=== PATIENT | male | born 1950 | race Caucasian/White ===

== ENCOUNTER 2017-05-31 08:34 | Day surgery (SDC) | payer MEDICARE, OTHER ==
[2017-05-28 16:24] VITALS: Ht 172.7 cm; Wt 108.7 kg
[~2017-05-31] VITALS: Ht 172.7 cm; Wt 108.7 kg
[2017-05-31] VITALS (14 sets, daily range): BP systolic 71–149; BP diastolic 44–92; PULSE 56–77; RESP 11–23
[~2017-05-31 08:34] MED LIST: SUCCINYLCHOLINE CHLORIDE 100 MG/5 ML SYG IV ONE
[2017-05-31] MEDS ORDERED: CLINDAMYCIN 600 MG/D5W (PMX) 50 ML IVPB ONE (09:00)
[2017-05-31] MEDS ORDERED: SOD CHLORIDE 0.9% 1,000 ML IV ONE (09:00)
[2017-05-31] MEDS ORDERED: ASPI81TA3 PO (09:29)
[2017-05-31] MEDS ORDERED: AMLO-147 PO (09:29)
[2017-05-31] MEDS ORDERED: GABA300C16 PO (09:30)
[2017-05-31] MEDS ORDERED: CARV6.2579 PO (09:30)
[2017-05-31] MEDS ORDERED: ATOR10TA65 PO (09:30)
[2017-05-31] MEDS ORDERED: DICL50TA11 PO (09:31)
[2017-05-31] MEDS ORDERED: LOSA100T7 PO (09:31)
[2017-05-31] MEDS ORDERED: OMEG1CAP2 PO (09:31)
[2017-05-31] MEDS ORDERED: ICOS1CAP PO (09:32)
[2017-05-31] MEDS ORDERED: ACET-141 PO (09:33)
[2017-05-31] MEDS ORDERED: ALLO100T PO (09:33)
[2017-05-31] MEDS ORDERED: OLOP2.5D BOTH EYES (09:33)
[2017-05-31] MEDS ORDERED: TRAM-40 PO (09:34)
[2017-05-31] MEDS ORDERED: KEN25L60 TOP (09:34)
[2017-05-31] MEDS ORDERED: CALAMINE TOP (09:34)
[2017-05-31] MEDS ORDERED: CARV6.25 PO (09:34)
[2017-05-31] MEDS ORDERED: PROPOFOL 20 ML ONE ×2 (09:36→09:59)
[2017-05-31] MEDS ORDERED: BUPIVACAINE 0.25% (MPF) 30 ML INJ ONE (09:51)
[2017-05-31] MEDS ORDERED: MIDAZOLAM 1 MG/ML 2 ML INJ ONE ×2 (09:59→10:00)
[2017-05-31] MEDS ORDERED: morphine (1 MG/ML) 10ML SYRINGE IV PRN ×3 (10:00)
[2017-05-31] MEDS ORDERED: FENTAnyl 50 MCG/ML VIAL ONE (10:00)
[2017-05-31] MEDS ORDERED: LABETALOL HCL 20MG INJ IV PRN (10:00)
[2017-05-31] MEDS ORDERED: EPHEDrine SULFATE 50 MG/5 ML SYG IV PRN (10:00)
[2017-05-31] MEDS ORDERED: MEPERIDINE 25 MG INJ IV PRN (10:00)
[2017-05-31] MEDS ORDERED: hydrALAzine 20 MG INJ IV PRN (10:00)
[2017-05-31] MEDS ORDERED: DIPHENHYDRAMINE 50 MG INJ IV PRN (10:00)
[2017-05-31] MEDS ORDERED: FENTAnyl 50 MCG/ML VIAL IV PRN ×3 (10:00)
[2017-05-31] MEDS ORDERED: ONDANSETRON 4 MG INJ IV PRN (10:00)
[2017-05-31] MEDS ORDERED: OXYCODONE/ACETAMINOPHEN (5/325) TAB PO PRN (10:00)
[2017-05-31] MEDS ORDERED: CLINDAMYCIN 900 MG/D5W (PMX) 50 ML IVPB ONE (10:16)
[2017-05-31] MEDS ORDERED: METOCLOPRAMIDE 10 MG INJ ONE (10:16)
[2017-05-31] MEDS ORDERED: ONDANSETRON 4 MG INJ ONE (10:16)
[2017-05-31] MEDS ORDERED: KETOROLAC 30 MG INJ ONE (10:16)
[2017-05-31] MEDS ORDERED: DEXAMETHASONE 4 MG/ML 1 ML INJ ONE (10:16)
--- NOTE | 2017-05-31 10:35 | SIPON ---
Date/Time of Note Date/Time of Note DATE: 05/31/17 TIME: 10:34 Operative Report Preoperative Diagnosis right posterior scalp/neck mass Postoperative Diagnosis same Operation/Procedure Performed 1. excision of right posterior scalp/neck mass 5 cm incision 3 cm mass 2. localized adjacent tissue transfer with the use of skin flaps 10 sq cm defect 3. therapeutic injection of subcutaneous marcaine cpt code 42542 Surgeon see signature line geriatric nurse assistant none Anesthesia: general Estimated blood loss: minimal Transfusion Required none Specimen right posterior scalp mass Grafts/Implants none Complications none Daniel BEAULIEU May 31, 2017 10:35
[2017-05-31] MEDS ORDERED: EPINEPHrine 0.1 MG/ML SYG ONE (10:40)
[2017-05-31] MEDS ORDERED: HYDROCODONE/APAP (5/325) TAB PO ONE (11:00)
--- NOTE | 2017-05-31 11:02 | OPR ---
DATE OF OPERATION: INDICATION: This is a 67-year-old male with a right posterior scalp mass. He requests surgical excision. Risks, alternatives and benefits of procedure were discussed. Patient expressed understanding. Consents to the operation. PREOPERATIVE DIAGNOSIS: Right posterior scalp mass. POSTOPERATIVE DIAGNOSIS: Right posterior scalp mass. OPERATION PERFORMED: 1. Excision of right posterior scalp mass with 5 cm size incision and 3 cm size mass. 2. Localized adjacent tissue transfer with the use of skin flaps of 10 square cm defect. 3. Therapeutic subcutaneous Marcaine injection. SURGEON: Dr. Brian Francois. SPECIMEN: Right posterior scalp mass. COMPLICATIONS: None. ANESTHESIA: General. EBL: Minimal. OPERATIVE PROCEDURE: Patient was taken to the OR, prepped and draped in the usual sterile fashion. Surgical time-out was performed. IV antibiotics were given. Oblique incision was made along the skin lines with a 15 blade over the right posterior scalp/neck mass. The mass is right at the border of the neck and scalp region. There is minimal hair in the incisional area. Dissection cautery was carried out to the mass. The mass was circumferentially excised. There was good hemostasis. Due to large tissue defect, localized adjacent tissue transfer with the use of skin flaps was performed. Multilayered closure with interrupted 3-0 Vicryl and skin cody. Therapeutic subcutaneous Marcaine is injected throughout the incision. Dressings were applied. Dictated By: Km Simpson /finat/ /Document#: [id number]
[2017-05-31] MEDS ORDERED: HYDROCODONE/APAP (5/325) TAB ONE (11:22)
== END 2017-05-31 12:30 | disposition home or self-care (01) ==
LOC: SDS 08:34
PROVIDERS: ATTEND Surgery
DX: D17.0 Benign lipomatous neoplasm of skin and subcutaneous tissue of head, face and neck (principal); I10 Essential (primary) hypertension
CPT/HCPCS: 14020; 88307; J1885; J2250; J2765; J3010; J7999; J0171; J1100; J2405